=== PATIENT | female | born 1950 | race Caucasian/White ===

== ENCOUNTER 2017-01-28 09:13 | Outpatient (CLI) | payer OTHER, MEDICARE ==
[2017-01-28 10:18] LABS: ALT (SGPT) 12 U/L (0-55); AST (SGOT) 14 U/L (5-34); Albumin 4.2 g/dL (3.4-4.8); Alkaline Phosphatase 101 U/L (40-150); Anion Gap 15 mmol/L (10-20); BUN (Urea Nitrogen) 19 mg/dL (9.8-20.1); Bilirubin, Direct 0.1 mg/dL (0.1-0.3); Bilirubin, Total 0.4 mg/dL (0.2-1.2); Calc. Creatinine Clearance 0 mL/min (70-130); Calcium 9.7 mg/dL (7.8-10.44); Carbon Dioxide 28 mmol/L (23-31); Cardiac Risk 4.9 (Less than 4.5); Chloride 105 mmol/L (98-107); Cholesterol 199 mg/dL (< 200 Desired); Estimated GFR-MDRD 71; Glucose 104 mg/dL (80-115); HDL Cholesterol 41 mg/dL (>60 Neg Risk); LDL Cholesterol, Calculated 129 mg/dL; Potassium 4.6 mmol/L (3.5-5.1); Protein, Total 6.9 g/dL (5.8-8.1); Sodium 143 mmol/L (136-145); Triglycerides 146 mg/dL (Less than 150)
== END 2017-01-28 09:14 | disposition home or self-care (01) ==
LOC: MADLABBHPM 09:13
PROVIDERS: ATTEND Family Medicine
DX: E78.5 Hyperlipidemia, unspecified (principal); I10 Essential (primary) hypertension
CPT/HCPCS: 36415; 80048; 80061; 80076

== ENCOUNTER 2017-04-24 08:56 | Outpatient (CLI) | payer OTHER, MEDICARE ==
[2017-04-24 09:38] LABS: ALT (SGPT) 16 U/L (8-55); AST (SGOT) 17 U/L (5-34); Albumin 4.3 g/dL (3.4-4.8); Alkaline Phosphatase 92 U/L (40-150); Anion Gap 17 mmol/L (10-20); BUN (Urea Nitrogen) 22 mg/dL (9.8-20.1); Bilirubin, Direct 0.2 mg/dL (0.1-0.3); Bilirubin, Total 0.5 mg/dL (0.2-1.2); Calc. Creatinine Clearance 0 mL/min (70-130); Calcium 9.4 mg/dL (7.8-10.44); Carbon Dioxide 23 mmol/L (23-31); Chloride 105 mmol/L (98-107); Cholesterol 216 mg/dl (< 200 Desired); Estimated GFR-MDRD 70; Glucose 99 mg/dL (80-115); HDL Cholesterol 43 mg/dL (>60 Neg Risk); LDL Cholesterol, Calculated 132 mg/dL; Potassium 4.6 mmol/L (3.5-5.1); Protein, Total 7.3 g/dL (6.0-8.3); Sodium 140 mmol/L (136-145); Triglycerides 205 mg/dL (Less than 150)
== END 2017-04-24 08:57 | disposition home or self-care (01) ==
LOC: MADLABBHPM 08:56
PROVIDERS: ATTEND Family Medicine
DX: E78.5 Hyperlipidemia, unspecified (principal); I10 Essential (primary) hypertension
CPT/HCPCS: 36415; 80048; 80061; 80076

== ENCOUNTER 2019-07-28 17:52 | Emergency (ER) | payer MEDICARE, OTHER ==
[2019-07-28] MEDS ORDERED: Ibuprofen 800 MG TAB ONE (18:16)
--- NOTE | 2019-07-28 18:34 | RAD ---
Radiograph right wrist 4 views: HISTORY: 69-year-old female status post acute traumatic injury to right wrist. COMPARISON: None available FINDINGS: Severe DJD at first CMC. Slight widening of scapholunate interval raising the possibility of scapholu al ligament tear of indeterminate age. No acute fracture identified. Mild to moderate DJD at the DRUJ. If there is snuffbox tenderness following trauma that suggests an occult scaphoid fracture, the n the general recommendation is immobilization and follow-up imaging in 5-10 days. No dislocation. IMPRESSION: 1. No acute fracture identified. 2. Severe osteoarthrosis of the first carpometacarpal joint. 3. Mild widening of scapholunate interval, raising the possibility of at least partial tear of the sc apholunate ligament of indeterminate age. 4. 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
--- NOTE | 2019-07-28 18:36 | RAD ---
Radiograph right hand 3 views: HISTORY: 69-year-old female status post acute traumatic injury FINDINGS: No acute fracture is identified. No dislocation. Degenerative changes are very severe at first CMC, s omewhat severe at second DIP where there is varus angulation, mild to moderate at DRUJ, and moderate at third DIP. IMPRESSION: 1. No acute fracture identified. 2. Osteoarthrosis of select joints, most severe at first carpometacarpal joint, followed by second di stal interphalangeal joint.
== END 2019-07-28 18:59 | disposition home or self-care (01) ==
LOC: MADERS 17:52
DX: S63.501A Unspecified sprain of right wrist, initial encounter (principal); I10 Essential (primary) hypertension; F41.9 Anxiety disorder, unspecified; X50.9XXA Other and unspecified overexertion or strenuous movements or postures, initial encounter

== ENCOUNTER 2020-01-25 12:27 | Outpatient (CLI) | payer MEDICARE, OTHER ==
--- NOTE | 2020-01-25 13:56 | RAD ---
RIGHT RIBS 2 VIEWS: HISTORY: Fall, right hip pain. FINDINGS/IMPRESSION: No definite right rib fracture is seen. POS: [facility]
--- NOTE | 2020-01-25 13:56 | RAD ---
PA AND LATERAL VIEWS CHEST: HISTORY: Fall, left-sided rib pain, chest pain. FINDINGS: The heart size is normal. The aorta is tortuous. The lungs are expanded without focal areas of cons olidation, pneumothoraces, or pleural effusions. IMPRESSION: No radiographic evidence of acute cardiopulmonary process. POS: [facility]
== END 2020-01-25 12:28 | disposition home or self-care (01) ==
LOC: MADRAD 12:27
PROVIDERS: ATTEND Family Medicine
DX: R07.89 Other chest pain (principal)
CPT/HCPCS: 71046

== ENCOUNTER 2020-06-19 10:58 | Emergency (ER) | payer MEDICARE, OTHER ==
[2020-06-21 15:57] LABS: SARS-CoV-2 MS2 Positive; SARS-CoV-2 N Gene Negative; SARS-CoV-2 S Gene Negative; SARS-CoV-2 by NAA Not Detected (NotDetected); SARS-CoV-2 orf1ab Negative
== END 2020-06-19 12:44 | disposition home or self-care (01) ==
LOC: MADERS 10:58
DX: Z20.828 Contact with and (suspected) exposure to other viral communicable diseases (principal); I10 Essential (primary) hypertension; F41.9 Anxiety disorder, unspecified; Z79.899 Other long term (current) drug therapy
CPT/HCPCS: 87635; 99283; U0003

== ENCOUNTER 2021-07-01 12:24 | Outpatient (CLI) | payer MEDICARE, OTHER ==
[2021-07-01 16:54] LABS: ALT (SGPT) 19 U/L (8-55); AST (SGOT) 19 U/L (5-34); Albumin 4.2 g/dL (3.4-4.8); Alkaline Phosphatase 109 U/L (40-110); Anion Gap 14 mmol/L (10-20); BUN (Urea Nitrogen) 13 mg/dL (9.8-20.1); Bilirubin, Total 0.7 mg/dL (0.2-1.2); CRP (Inflammatory) 0.58 mg/dL (= or < 0.5); Calc. Creatinine Clearance 0 mL/min (70-130); Calcium 9.9 mg/dL (7.8-10.44); Carbon Dioxide 25 mmol/L (23-31); Cardiac Risk 5.9 (Less than 4.5); Chloride 107 mmol/L (98-107); Cholesterol 202 mg/dl (< 200 Desired); Globulin 2.7 g/dL (2.4-3.5); Glucose 100 mg/dL (80-115); HDL Cholesterol 34 mg/dL (>60 Neg Risk); LDL Cholesterol, Calculated 143 mg/dL; Potassium 4.2 mmol/L (3.5-5.1); Protein, Total 6.9 g/dL (5.8-8.1); Sodium 142 mmol/L (136-145); Triglycerides 124 mg/dL (Less than 150)
[2021-07-01 17:07] LABS: #Basophils 0.1 thou/uL (0.0-0.2); #Eosinphils 0.1 thou/uL (0.0-0.7); #Lymphocytes 2.5 thou/uL (1.20-3.40); #Monocytes 0.3 thou/uL (0.11-0.59); #Neutrophils 3.3 thou/uL (1.40-6.50); %Lymphocytes 39.9 % (21.0-51.0); %Monocytes 4.1 % (0.0-10.0); %Neutrophils 52.9 % (42.0-75.0); Hemoglobin 14.8 g/dL (12.0-16.0); Mean Corpuscular HGB CONC 31.7 g/dL (32.0-36.0); Mean Corpuscular Hemoglobin 29.1 pg (27.0-31.0); Mean Corpuscular Volume 91.7 fL (78.0-98.0); Mean Platelet Volume 7.9 fL (7.4-10.4); Platelet Count 202 thou/uL (130-400); RBC Distribution Width 11.7 % (11.5-14.5); White Blood Cell (WBC) Count 6.2 thou/uL (4.8-10.8)
== END 2021-07-01 12:25 | disposition home or self-care (01) ==
LOC: MADLAB 12:24
PROVIDERS: ATTEND Family Medicine
DX: R29.6 Repeated falls (principal); R26.81 Unsteadiness on feet; R25.1 Tremor, unspecified; E66.9 Obesity, unspecified
CPT/HCPCS: 36415; 80053; 80061; 84443; 85025; 85652; 86140

== ENCOUNTER 2024-11-07 15:48 | Emergency (ER) | payer MEDICARE, OTHER ==
[~2024-11-07 15:48] MED LIST: Iopamidol 370 76% 100 ML VIAL ONE
[2024-11-07 16:17] LABS: Bilirubin Negative (Negative); Blood, Urine Negative (Negative); Clarity Hazy (Clear); Glucose, Urine (Dipstick) Negative (Negative); Ketone, Urine 40 mg/dL (Negative); Leukocyte Trace (Negative); Nitrite Negative (Negative); Protein, Urine (Dipstick) 30 mg/dL (Neg-Trace); Specific Gravity, Urine 1.025 (1.005-1.030); pH, Urine 5.5 (5.0-9.0)
[2024-11-07 16:21] LABS: Bacteria/HPF Rare-Few HPF (None Seen); CAUTI Indications for Culture Alt mental st,lethar; Calcium Oxalate Crystals Rare HPF (None Seen); Mucous/LPF 2+ LPF (<2+); RBC/HPF 0-3 HPF (0-3)
[2024-11-07 16:22] LABS: Urine Culture Reflex Yes Yes
[2024-11-07 16:49] LABS: #Basophils 0.1 thou/uL (0.0-0.2); #Eosinophils 0.1 thou/uL (0.0-0.7); #Lymphocytes 2.6 thou/uL (1.20-3.40); #Monocytes 0.6 thou/uL (0.11-0.59); #Neutrophils 5.8 thou/uL (1.40-6.50); %Basophils 0.8 % (0.0-1.0); %Eosinophils 1.2 % (0.0-10.0); %Lymphocytes 28.5 % (21.0-51.0); %Monocytes 6.9 % (0.0-10.0); %Neutrophils 62.6 % (42.0-75.0); Hematocrit 40.6 % (36.0-47.0); Hemoglobin 13.1 g/dL (12.0-16.0); Mean Corpuscular HGB CONC 32.3 g/dL (32.0-36.0); Mean Corpuscular Hemoglobin 29.9 pg (27.0-31.0); Mean Corpuscular Volume 92.7 fl (78.0-98.0); Mean Platelet Volume 8.3 fL (7.4-10.4); Platelet Count 202 10x3/uL (130-400); RBC Distribution Width 11.7 % (11.5-14.5); Red Blood Cell (RBC) Count 4.38 mill/uL (4.20-5.40); White Blood Cell (WBC) Count 9.2 10x3/uL (4.8-10.8)
[2024-11-07 16:52] LABS: INR-International Normal Ratio 1.1; Prothrombin Time 14.1 sec (12.0-14.7)
[2024-11-07 17:04] LABS: ALT (SGPT) Less than 7 U/L (8-55); AST (SGOT) 19 U/L (5-34); Alkaline Phosphatase 78 U/L (40-110); Anion Gap 15 mmol/L (10-20); BUN (Urea Nitrogen) 13 mg/dL (9.8-20.1); Bilirubin, Total 0.7 mg/dL (0.2-1.2); CK (CPK) 141 U/L (29-168); Calc. Creatinine Clearance 0 mL/min (70-130); Calcium 9.2 mg/dL (7.8-10.44); Carbon Dioxide 23 mmol/L (23-31); Chloride 107 mmol/L (98-107); Estimated GFR 72; Globulin 2.2 g/dL (2.4-3.5); Glucose 97 mg/dL (83-110); Lipase 8 U/L (8-78); Potassium 4.1 mmol/L (3.5-5.1); Protein, Total 6.2 g/dL (5.8-8.1); Sodium 141 mmol/L (136-145); Troponin I 0.022 ng/mL (< 0.028)
== END 2024-11-07 18:15 | disposition home or self-care (01) ==
LOC: MADERS 15:48
DX: R41.82 Altered mental status, unspecified (principal); R90.82 White matter disease, unspecified; K43.9 Ventral hernia without obstruction or gangrene; R60.9 Edema, unspecified; N28.89 Other specified disorders of kidney and ureter; R79.89 Other specified abnormal findings of blood chemistry; I10 Essential (primary) hypertension; R06.09 Other forms of dyspnea
CPT/HCPCS: 36415; 70450; 71045; 74177; 80053; 81001; 82550; 83690; 83880; 84443; 84484; 85025; 85610; 85730; 87086; 93005; 94760; Q9967

== ENCOUNTER 2024-12-07 13:29 | Emergency (ER) | payer MEDICARE, OTHER ==
[2024-12-07 14:04] LABS: Bilirubin Negative (Negative); Blood, Urine Negative (Negative); Clarity Slightly Cloudy (Clear); Glucose, Urine (Dipstick) Negative (Negative); Ketone, Urine 15 mg/dL (Negative); Leukocyte Small (Negative); Nitrite Negative (Negative); Protein, Urine (Dipstick) 100 mg/dL (Neg-Trace)
[2024-12-07 14:07] LABS: Specific Gravity, Urine 1.027 (1.002-1.036)
[2024-12-07] MEDS ORDERED: clonazePAM 0.5 MG TAB PO SCH (14:15)
[2024-12-07 14:18] LABS: RBC/HPF 0-3 HPF (0-3)
[2024-12-07 14:19] LABS: Bacteria/HPF 1+ HPF (None Seen); CAUTI Indications for Culture Dysuria,urgency,freq
[2024-12-07 14:20] LABS: Calcium Oxalate Crystals Rare HPF (None Seen); Urine Culture Reflex Yes Yes
== END 2024-12-07 15:10 | disposition home or self-care (01) ==
LOC: MADERS 13:29
DX: N39.0 Urinary tract infection, site not specified (principal); I10 Essential (primary) hypertension
CPT/HCPCS: 81001; 87077; 87086; 99283